=== PATIENT | female | born 1980 | race Caucasian/White ===

== ENCOUNTER 2016-10-25 13:31 | Emergency (ER) | payer SELFPAY ==
[~2016-10-25] VITALS: Ht 160 cm; Wt 51.6 kg
[2016-10-25] MEDS ORDERED: SODIUM CHLORIDE FLUSH 10ML SYR IVF ONE (14:30)
[2016-10-25] MEDS ORDERED: SODIUM CHLORIDE 0.9% 1,000ML IVBOLUS ONE (14:30)
[2016-10-25 14:54] LABS: HEMOGLOBIN 13.2 g/dL (11.7-16.4)
[2016-10-25 15:05] LABS: BLOOD UREA NITROGEN 11 mg/dL (7-18)
[2016-10-25 16:28] VITALS: BP 108/78
== END 2016-10-25 16:32 | disposition home or self-care (01) ==
LOC: ED 14:30
DX: O26.891 Other specified pregnancy related conditions, first trimester (principal); R10.2 Pelvic and perineal pain; O99.331 Smoking (tobacco) complicating pregnancy, first trimester; F15.10 Other stimulant abuse, uncomplicated; Z3A.01 Less than 8 weeks gestation of pregnancy
CPT/HCPCS: 36415; 76830; 80048; 81003; 82040; 84702; 85025

== ENCOUNTER 2017-04-06 22:59 | Observation (INO) | payer MEDICAID ==
[~2017-04-06] VITALS: Ht 157.5 cm; Wt 66.8 kg
[2017-04-06 23:57] LABS: DAU SCREEN DISCLAIMER
[2017-04-07] MEDS ORDERED: LACTATED RINGERS 1,000 ML IVBOLUS ONE
[2017-04-07] MEDS ORDERED: ONDANSETRON 2MG/ML, 2ML IVPush PRN
[2017-04-07] MEDS ORDERED: LACTATED RINGERS 500 ML IVBOLUS ONE
[2017-04-07] MEDS ORDERED: MAALOX/HYOSCYAMINE/LIDOCAINE 45 ML BTL PO ONE
[2017-04-07] MEDS ORDERED: ONDANSETRON 2MG/ML, 2ML ONE (00:11)
[2017-04-07] MEDS ORDERED: D5%-LACTATED RINGERS 1,000 ML IV SCH ×2 (00:46)
== END 2017-04-07 02:30 | disposition home or self-care (01) ==
LOC: LDOP 22:59 → LDIP 04-07 01:00
PROVIDERS: ADMIT Student in an Organized Health Care Education/Training Program; ATTEND Student in an Organized Health Care Education/Training Program
DX: O21.2 Late vomiting of pregnancy (principal); O26.893 Other specified pregnancy related conditions, third trimester; R10.9 Unspecified abdominal pain; O99.333 Smoking (tobacco) complicating pregnancy, third trimester; Z3A.29 29 weeks gestation of pregnancy
CPT/HCPCS: 59025; 80307; 81001; 87086; 96374; G0378; J2405; J7120; 96360; 96361; G0479